=== PATIENT | female | born 1995 | race Caucasian/White ===

== ENCOUNTER 2022-03-16 20:06 | Inpatient (IN) | payer OTHER ==
[~2022-03-16] VITALS: Ht 170.2 cm; Wt 67.1 kg
[2022-03-16 20:58] LABS: HCT 37.1 % (37.0-47.0); HGB 12.3 g/dl (12.5-16.0); MCH 28.5 pg (25.0-31.0); MCHC 33.2 g/dL (32.0-36.0); MCV 85.9 fL (78.0-100.0); MPV 11.7 fL (6.0-9.5); RBC 4.32 M/uL (4.20-5.40); RDW 13.2 % (11.5-14.0); WBC 11.6 K/uL (4.0-10.5)
[2022-03-16 20:59] LABS: BILIRUBIN NEGATIVE (NEGATIVE); BLOOD NEGATIVE Ery/uL (NEGATIVE); CLARITY CLEAR (CLEAR); COLOR YELLOW (YELLOW); GLUCOSE (U) NORMAL (NORMAL); LEUKOCYTES 1+ Leu/uL (NEGATIVE); NITRITE NEGATIVE (NEGATIVE); PROTEIN NEGATIVE (NEGATIVE); UROBILINOGEN 0.2 mg/dL (0.2-1.0)
[2022-03-18 07:15] LABS: HCT 25.3 % (37.0-47.0); MCH 28.5 pg (25.0-31.0); MCHC 33.2 g/dL (32.0-36.0); MCV 85.8 fL (78.0-100.0); MPV 11.5 fL (6.0-9.5); RBC 2.95 M/uL (4.20-5.40); RDW 13.3 % (11.5-14.0); WBC 12.9 K/uL (4.0-10.5)
[2022-03-18 07:21] LABS: HGB 8.4 g/dl (12.5-16.0)
== END 2022-03-19 13:15 | disposition home or self-care (01) | DRG 806 ==
LOC: FOB 20:06
PROVIDERS: Specialist; ADMIT Obstetrics & Gynecology
PROC: 3E0P7VZ Introduction of Hormone into Female Reproductive, Via Natural or Artificial Opening (ICD-10-PCS; 2022-03-16)
PROC: 10E0XZZ Delivery of Products of Conception, External Approach (ICD-10-PCS; principal; 2022-03-17)
PROC: 0KQM0ZZ Repair Perineum Muscle, Open Approach (ICD-10-PCS; 2022-03-17)
DX: O36.5930 Maternal care for other known or suspected poor fetal growth, third trimester, not applicable or unspecified (principal); D62 Acute posthemorrhagic anemia; Z37.0 Single live birth; Z3A.38 38 weeks gestation of pregnancy; Z20.822 Contact with and (suspected) exposure to COVID-19; O34.13 Maternal care for benign tumor of corpus uteri, third trimester; O99.824 Streptococcus B carrier state complicating childbirth; D25.9 Leiomyoma of uterus, unspecified; O90.81 Anemia of the puerperium; O70.1 Second degree perineal laceration during delivery; O62.2 Other uterine inertia; O99.334 Smoking (tobacco) complicating childbirth; F17.290 Nicotine dependence, other tobacco product, uncomplicated; Z88.0 Allergy status to penicillin
CPT/HCPCS: 36415; 81001; 86850; 86900; 86901; J0690; J2210; J2405; J2795; J2916; J3105; J7120; U0002